=== PATIENT | female | born 1950 | race African-American/Black ===

== ENCOUNTER 2020-11-19 09:54 | Outpatient (CLI) | payer MEDICARE | END 2020-11-19 09:55 | disposition home or self-care (01) | LOC: DTY/OP 09:54 | PROVIDERS: ATTEND Surgery | DX: E11.9 Type 2 diabetes mellitus without complications (principal); I10 Essential (primary) hypertension; M89.49 Other hypertrophic osteoarthropathy, multiple sites; E88.81 Metabolic syndrome and other insulin resistance; E78.5 Hyperlipidemia, unspecified; Z68.43 Body mass index [BMI] 50.0-59.9, adult | CPT/HCPCS: 97802 ==